=== PATIENT | male | born 1975 | race Caucasian/White ===

== ENCOUNTER 2018-01-06 15:22 | Emergency (ER) | payer MEDICAID | END 2018-01-06 18:48 | disposition home or self-care (01) | LOC: D.ER 15:22 | DX: H66.91 Otitis media, unspecified, right ear (principal); H92.01 Otalgia, right ear ==

== ENCOUNTER 2019-03-06 07:27 | Emergency (ER) | payer MEDICAID ==
[~2019-03-06] VITALS: Ht 177.8 cm; Wt 77.3 kg
[2019-03-06 07:31] VITALS: Ht 177.8 cm; Wt 77.3 kg
[2019-03-06] MEDS ORDERED: CYCLOBENZAPRINE10 MG PO (08:02)
[2019-03-06] MEDS ORDERED: ACETAMINOPHEN500 M1 PO (08:02)
[2019-03-06] MEDS ORDERED: IBUPROFEN800 MG PO (08:02)
[2019-03-06 08:50] VITALS: BP 130/73
== END 2019-03-06 08:51 | disposition home or self-care (01) ==
LOC: D.ER 07:27
DX: M25.462 Effusion, left knee (principal); M25.562 Pain in left knee